=== PATIENT | female | born 1995 | race Caucasian/White ===

== ENCOUNTER 2022-03-03 07:25 | Emergency (ER) | payer BC ==
[~2022-03-03] VITALS: Ht 160 cm; Wt 59.0 kg
[2022-03-03] MEDS ORDERED: METH4TAB3 PO (08:22)
[2022-03-03 08:30] VITALS: BP 117/74
--- NOTE | 2022-03-03 08:30 | NUR ---
Patient discharged to home in stable condition. Written and verbal after care instructions given. Patient verbalizes understanding of instructions. Stressed follow up or return to ER for worsening s/s.
== END 2022-03-03 08:30 | disposition home or self-care (01) ==
LOC: ER 07:25
DX: U07.1 COVID-19 (principal); J02.8 Acute pharyngitis due to other specified organisms; Z88.0 Allergy status to penicillin
CPT/HCPCS: 86403; 87070; A4663